=== PATIENT | male | born 2000 | race African-American/Black ===

== ENCOUNTER 2021-05-24 17:20 | Emergency (ER) | payer OTHER, SELFPAY ==
[2021-05-24 17:33] VITALS: BP 123/85; PULSE 85; RESP 16; TEMP 37.4; O2SAT 99
--- NOTE | 2021-05-24 17:42 | ED.URI ---
HPI - URI/Sore Throat General Chief Complaint: Upper Respiratory Infection Stated Complaint: SORE THROAT Time Seen by Provider: 05/24/21 17:42 Source: patient, family, RN notes reviewed and old records reviewed Mode of arrival: ambulatory Limitations: no limitations History of Present Illness HPI Narrative: 20 year old male who [facility] with complaints of 3-4 day history of sore throat which has burning sensation and cough. He states that he did have nasal drainage but that has resolved, has had some feelings of being feverish with chills, denies any body aches. Patient states that he has been using Chloraseptic spray and taking cough drops for his sore throat. Patient has not had COVID vaccinations, works at [employer]. Patient denies any shortness of breath or wheezing states history of asthma as child with no problems or use of inhalers for quite some time. MD elicited complaint: cough, sore throat and other (felt feverish with chills and sweats) Related Data Home Medications Medication Instructions Recorded Confirmed No Home Medications 05/24/21 05/24/21 Allergies Allergy/AdvReac Type Severity Reaction Status Date / Time No Known Allergies Allergy Verified 05/24/21 17:53 Review of Systems Review of Systems: CONSTITUTIONAL: Positive felt feverish, chills, or sweats. EYES: Denies visual changes, redness, or discharge. ENT: Positive rhinorrhea, congestion, sore throat, no otalgia. CARDIOVASCULAR: Denies chest pain, palpitations, or edema. RESPIRATORY: Positive for cough denies dyspnea. GASTROINTESTINAL: Denies abdominal pain, nausea, vomiting, or diarrhea. GENITOURINARY: Denies dysuria or hematuria. SKIN: Denies rash or itching. MUSCULOSKELETAL: Denies back pain, joint pain, or myalgia. NEUROLOGIC: Denies headache, numbness, or weakness. PSYCHIATRIC: Denies anxiety or depression, appear anxious All systems reviewed & are unremarkable except as noted in HPI and below PMFSH Past Medical History Medical History (Updated 05/26/21 @ 10:10 by Amairani Pickard NP) Asthma Dental abscess Surgical History Surgical History (Updated 05/26/21 @ 10:10 by Amairani Pickard NP) No history of previous surgery Family History Family History (Updated 05/26/21 @ 10:12 by Amairani Pickard NP) Other Diabetes mellitus Social History Social History (Updated 05/26/21 @ 10:10 by Amairani Pickard NP) Smoking status: Never smoker Alcohol intake: current Alcohol use details: social Substance use: never Living arrangements: with family Gender identity (if verbalized by the patient): Male Comments At time of signature, agree with nursing past medical, surgical, social and family history. There is no relevant family history pertinent to the presenting complaint Exam Narrative: GENERAL: Ill-appearing, well-nourished, and in no acute distress. HEAD: Normocephalic, atraumatic. EYES: PERRLA and EOMI. ENT: Nares red clear rhinorrhea No epistaxis. Mucous membranes moist.TM's normal with good light reflex, throat red with no lesions or exudates, no tonsil enlargement post nasal drainage noted NECK: Supple.No lymphadenopathy CHEST: Clear to auscultation. No respiratory distress.dry cough no wheezing or dyspnea, SAO2 99% on room air HEART: Regular rate and rhythm. No murmur heard. Normal peripheral pulses. ABDOMEN: Soft, nontender, nondistended, normal active bowel sounds. EXTREMITIES: Normal range of motion. No edema. SKIN: Warm, dry, no rash. NEURO: No focal deficits. Alert and oriented x3. Course Vital Signs Vital signs: Vital Signs Temperature 37.4 C 05/24/21 17:33 Pulse Rate 85 05/24/21 17:33 Respiratory Rate 16 05/24/21 17:33 Blood Pressure 123/85 05/24/21 17:33 Pulse Oximetry 99 05/24/21 17:33 Temperature 37.4 C 05/24/21 17:33 Pulse Rate 85 05/24/21 17:33 Respiratory Rate 16 05/24/21 17:33 Blood Pressure 123/85 05/24/21 17:33 Pulse Oximetry 99 0
--- NOTE | 2021-05-26 14:51 | PC.NURSE ---
pt called the express care and said he is strep positive and does not have an abx. afternreviewing chart this internal communications writer sees + strep with no documented abx. call given to Maryana.
--- NOTE | 2021-05-26 15:00 | PC.NURSE ---
CORRECTION Pt is POC strep neg, strep is pending culture. pt called with correction but no answer, message left.
== END 2021-05-24 18:30 | disposition home or self-care (01) ==
PROVIDERS: Emergency Provider Registered Nurse
DX: U07.1 COVID-19 (principal); J45.909 Unspecified asthma, uncomplicated
CPT/HCPCS: 87081; 87426; 87880; 99213; C9803; G0463

== ENCOUNTER 2024-10-07 22:18 | Emergency (ER) | payer BC, SELFPAY ==
[2024-10-07 22:20] VITALS: BP 141/82; PULSE 69; RESP 18; TEMP 36.4; O2SAT 100
--- NOTE | 2024-10-08 00:46 | ED_ITS ---
HPI - Allergic Reaction General Chief complaint: Allergic Reaction Stated complaint: allergic reaction, itching, lip swelling Time Seen by Provider: 10/08/24 00:23 Source: patient Mode of arrival: ambulatory Limitations: no limitations History of Present Illness HPI narrative: This is a 23-year-old male who presents to the ED for chief complaint of upper and lower lip swelling beginning around 9:00 p.m. this evening. Patient states that this did seem to occur after eating steak strips with adobo seasoning. States that he has had this food in the past but is questioning whether not he had an allergic reaction tonight. He does not take any regular medications. No other medical history to speak of. States that it felt like the lip swelling was onset with diffuse body itching but symptoms are starting to subside. He did have a short interval of time where it felt like his uvula was enlarged but states this has improved. He feels the lips may be improving somewhat but still feels little swollen. Denies rash, shortness of breath, chest pain, leg swelling, palpitations, nausea, vomiting, abdominal pain. Related Data Home Medications ?Medication ?Instructions ?Recorded ?Confirmed ?Last Taken ?Type No Home Medications 05/24/21 05/24/21 Unknown History Allergies Allergy/AdvReac Type Severity Reaction Status Date / Time No Known Allergies Allergy Verified 05/24/21 17:53 Review of Systems Review of Systems: All systems as dictated in [facility] Past Medical History Medical History (Updated 10/08/24 @ 02:39 by Garry Valencia PA-C) Dental abscess Asthma Surgical History Surgical History (Updated 05/26/21 @ 10:10 by Amairani Pickard NP) No history of previous surgery Family History Family History (Updated 05/26/21 @ 10:12 by Amairani Pickard NP) Other Diabetes mellitus Social History Social History (Updated 05/26/21 @ 10:10 by Amairani Pickard NP) Smoking status: Never smoker Alcohol intake: current Alcohol use details: social Substance use: never Living arrangements: with family Gender identity (if verbalized by the patient): Male Exam Narrative: GENERAL: Well-appearing, well-nourished, and in no acute distress. HEAD: Normocephalic, atraumatic. EYES: PERRLA and EOMI. ENT: Mucosal swelling to the upper and lower lip. The swelling seems to be limited to the lips only. Oropharynx is without edema. Uvula is midline and normal in size. No facial edema or swelling. Nares clear, no rhinorrhea or epistaxis. Mucous membranes moist. Oropharynx without tonsillar hypertrophy exudate or other lesions. NECK: Supple. No adenopathy or masses. CHEST: No respiratory distress. Clear to auscultation. No wheezes rales or rhonchi HEART: Regular rate and rhythm. No murmur heard. Normal peripheral pulses. ABDOMEN: Soft, nontender, nondistended, normal active bowel sounds. MSK: Normal range of motion. No edema. SKIN: Warm, dry, no rash. No hives or other rash detected NEURO: Alert and oriented x4. No focal deficits. PSYCH: Normal mood and affect. Course Vital Signs Vital signs: Vital Signs Temperature 97.6 F 10/07/24 22:20 Pulse Rate 69 10/07/24 22:20 Respiratory Rate 18 10/07/24 22:20 Blood Pressure 141/82 H 10/07/24 22:20 Pulse Oximetry 100 10/07/24 22:20 Oxygen Delivery Room Air 10/07/24 22:20 Temperature 97.6 F 10/07/24 22:20 Pulse Rate 71 10/08/24 01:18 Respiratory Rate 14 10/08/24 01:18 Blood Pressure 121/73 10/08/24 01:18 Pulse Oximetry 100 10/08/24 01:18 Oxygen Delivery Room Air 10/07/24 22:20 MDM - Allergic Reaction MDM Narrative Medical decision making narrative: This is a 23-year-old male who presents to the ED for chief complaint of lip swelling onset tonight with questionable allergic reaction a food seasoning. Vitals are normal. Exam remarkable for the above. There is mild swelling to the upper and lower lip. Posterior pharynx is normal. No airway compromise. He is resting comfortably, pleasant. Patient was given dexamethasone, Benadryl, famotidine. He is describing symptoms of possible allergic reaction. I am questioning histamine related angioedema read as a cause of his symptoms tonight. Does not appear to be consistent with anaphylaxis or a progressive angioedema that would warrant epinephrine or admission to the hospital. His symptoms subjectively are decreasing since onset. On re-evaluation after 4-1/2 hour observation, his swelling is same or decreased. Patient will be discharged in stable condition. Supportive measures discussed and return precautions given. Patient is understanding and agreeable with plan for discharge with PCP follow-up. Discharge Plan Discharge Clinical Impression: Angioedema Patient Disposition: Home, Self-Care Condition: Stable Instructions: Antibiotic Form, Angioedema (ED) Additional Instructions: Your exam today does show evidence of possible angioedema. This may have been due to an allergic reaction. Please take steroids as prescribed and follow-up with PCP. Try to avoid the agent that cause this tonight. If you have any new or worsening symptoms please return to the ER for further evaluation. Patient Language: American Prescriptions: No Action No Home Medications Follow-up/Referrals: Festus Grande MD [Physician] - UNKNOWN,DOCTOR [Primary Care Provider] - Time of Disposition: 02:40
[2024-10-08] MEDS: FAMOTIDINE 20 MG/2 ML VIAL IV PUSH (01:15)
[2024-10-08] MEDS: dexAMETHasone SOD PHOS INJ 10 MG/ML 1 ML VIAL IV PUSH (01:15)
[2024-10-08] MEDS: diphenhydrAMINE HCl INJ 50 MG/ML VIAL 25 MG IV PUSH (01:15)
[2024-10-08 01:18] VITALS: BP 121/73; PULSE 71; RESP 14; O2SAT 100
[2024-10-08 02:00] VITALS: O2SAT 99
== END 2024-10-08 03:10 | disposition home or self-care (01) ==
PROVIDERS: Emergency Provider Physician Assistant
DX: T78.3XXA Angioneurotic edema, initial encounter (principal)
CPT/HCPCS: 96374; 96375; 99284; J1100; J1200